=== PATIENT | female | born 1975 | race Caucasian/White ===

== ENCOUNTER 2016-09-29 20:13 | Inpatient (IN) | payer OTHER ==
[~2016-09-29] VITALS: Ht 170.2 cm; Wt 100.4 kg
--- NOTE | ~2016-09-29 | PR ---
[place], [place] PROGRESS NOTE NAME: MARY LIEBERMAN [facility] #: [id number] UNIT #: [id number] ROOM: 403 DOCTOR: SCARLET NUÑEZ MD BIRTHDATE: [birth year] DOS: SUBJECTIVE: The patient is doing fine without any complaint. Denies any chest pains, palpitations, or shortness of breath. OBJECTIVE EXAMINATION: GENERAL: She is awake and alert and oriented. Her face is pretty dontae this morning. VITAL SIGNS: Her temperature is 97.6, pulse of low 100s, respirations 16, blood pressure 104/71. LUNGS: Diminished breath sounds. A few wheezes heard this morning. HEART: Regular. ABDOMEN: Soft. EXTREMITIES: Without any edema. ASSESSMENT AND PLAN: 1. Acute exacerbation of bronchial asthma, which is moderate, intermittent. The patient is improving with the treatment plan. Continue steroids for one more day and hopefully, she can be discharged tomorrow. 2. Steroid-induced hyperglycemia. Blood sugars coming down with the taper of the steroids. 3. Type 2 diabetes mellitus, on medications. SCARLET NUÑEZ MD CM:PNTRANS 0715 SCARLET NUÑEZ MD 10/01/1645 interface
--- NOTE | ~2016-09-29 | DS ---
[place], [place] DISCHARGE SUMMARY NAME: MARY LIEBERMAN [facility] #: [id number] UNIT #: [id number] ROOM: 403 DOCTOR: SCARLET NUÑEZ MD BIRTHDATE: [birth year] DOS: HOSPITAL COURSE: The patient is 41 years old, comes into the Emergency Room with complaints of difficulty breathing. Please see the H and P dictated by Dr. Rowe for details. The patient was admitted, was started on IV steroids, breathing treatments, and antibiotics. The patient's home medications were continued. She does have bronchial asthma, intermittent, moderate and is on multiple medications for that. With IV steroids and breathing treatments, and antibiotics, the symptoms have improved. Her bronchospasm has resolved and the patient is therefore being discharged to home. She does have type 2 diabetes mellitus, [id number]-[id number]. Her blood sugars did go up with steroids. It is starting to come down with the steroid taper. The patient will follow with her PCP as an outpatient. PRESCRIPTION MEDICATIONS: Prednisone tapering dose, Ceftin 250 twice a day for 5 days, metformin 1000 b.i.d., Symbicort 160 one puff twice a day, glipizide 10 b.i.d. These are the home meds: Montelukast 10 daily, Zyrtec 10 daily, DuoNeb q.6, omeprazole 40 daily. SCARLET NUÑEZ MD CM:DISCHARG 0749 SCARLET NUÑEZ MD 10/02/16 0830 interface
--- NOTE | ~2016-09-29 | PR ---
[place], [place] PROGRESS NOTE NAME: MARY LIEBERMAN [facility] #: [id number] UNIT #: [id number] ROOM: 403 DOCTOR: SCARLET NUÑEZ MD BIRTHDATE: [birth year] DOS: SUBJECTIVE: The patient is doing fine without any complaints. OBJECTIVE: VITAL SIGNS: Graphic trend shows a pressure of 124/70, pulse of 87, respirations 17, temperature 97.3. LUNGS: Clear. HEART: Regular. ABDOMEN: Obese, soft. EXTREMITIES: Without any edema. ASSESSMENT AND PLAN: 1. Acute exacerbation of bronchial asthma. Bronchospasm has resolved. The plan is to discharge her to home today on p.o. steroids. Her labs were all normal at admission. Chest x-ray did not show any evidence of pneumonia. 2. Type 2 diabetes mellitus. Blood sugars not to bad on the steroids, blood sugar was 130 this morning. SCARLET NUÑEZ MD CM:PNTRANS 5 SCARLET NUÑEZ MD 10/02/16825 interface
--- NOTE | ~2016-09-29 | WRIGHTHP ---
[place], [place] PATIENT HISTORY AND PHYSICAL EXAM NAME: MARY LIEBERMAN [facility] #: [id number] UNIT #: [id number] ROOM: 403 DOCTOR: MELANIA GREENBERG MD BIRTHDATE: [birth year] DOS: 09/29/2016 HISTORY OF PRESENT ILLNESS: The patient is a 41-year-old female with a past medical history of: 1. Type 2 diabetes mellitus. 2. Bronchial asthma. 3. Generalized anxiety disorder. 4. Major depression, recurrent, mild. 5. History of hysterectomy. The patient presented to the Emergency Department with few-day complaints of increasing shortness of breath. The patient has history of bronchial asthma and requires recurrent treatment for shortness of breath. The patient's breathing was getting worse for 2 days. She had some wheezing and cough. Cough is nonproductive, and she was using her aerosol treatments every 4 hours without any relief. After admission, her breathing has started improving, but still not at its baseline. The patient says recently she has been getting these shortness of breath attacks quite more frequently and requires corticosteroids every time which elevates her blood sugar. Type 2 diabetes mellitus with blood sugars to be monitored and treated. The patient to be kept on no concentrated sweet diet. Corticosteroid-induced hyperglycemia with blood sugars staying between 200 to around 350, on small dose of Solu-Medrol. FAMILY HISTORY: Noncontributory. HOME MEDICATIONS: The patient takes bronchodilators and inhaled corticosteroids, omeprazole, ibuprofen, Singulair, cetirizine, metformin, glipizide. PHYSICAL EXAMINATION: GENERAL: Alert and oriented x 3, in no visible distress. Moderately obese. VITAL SIGNS: Blood pressure 137/88, heart rate 117 beats per minute, breathing 20 times per minute, temperature 98.2 degrees Fahrenheit. HEENT AND NECK: Extraocular movements are intact. Sclerae are anicteric. Oral mucosa is moist and clean. No obvious facial weakness. Neck is supple without any lymphadenopathy. No thyromegaly. No JVD. No carotid arterial bruits. LUNGS: Clear to auscultation. No wheezing. No rhonchi. CARDIOVASCULAR SYSTEM: Heart rate is regular in rate and rhythm. S1 and S2 normally audible. No significant murmur or any other abnormal cardiac sounds. ABDOMEN: Soft, nontender. No obvious organomegaly. Bowel sounds are present. No obvious herniation. EXTREMITIES: Without significant cyanosis or edema. Warm to touch. CENTRAL NERVOUS SYSTEM: Alert and oriented x 3. Cranial nerves II-XII are intact. Speech is normal. The patient is able to move all extremities. Normal muscle strength. Deep tendon reflexes are equal on both sides. Plantars were downgoing. [place], [place] PATIENT HISTORY AND PHYSICAL EXAM NAME: [facility] [id number] UNIT #: [id number] ROOM: [facility] DOCTOR: MELANIA GREENBERG MD BIRTHDATE: [birth year] LAB DATA: Normal serum electrolytes. Blood sugar 115. Chest x-ray without any acute abnormality. PT, PTT baseline. CBC is normal. IMPRESSION: 1. The patient with acute exacerbation of bronchial asthma with acute respiratory failure for which she was admitted and being treated with bronchodilators, corticosteroids, oxygen, antibiotic and her breathing is improving. The patient has been placed on a road machine runner. 2. Type 2 diabetes mellitus with reasonably controlled blood sugars. The patient takes metformin and glipizide. 3. Glucocorticoid-induced hyperglycemia, being managed with sliding scale of regular insulin given every 4 hours as needed. MELANIA GREENBERG MD CM:HISPHYS:PATIENT HISTORY AND PHYSICAL EXAMINATION 1605 6 MELANIA GREENBERG MD 10/01/16 0447 interface
[~2016-09-29 20:13] MED LIST: ALBUTEROL0.09 MG/A2 IH; CELEXA40 MG PO; CLARITIN10 MG PO; CLINDAMYCIN300 MG PO; DELTASONE10 MG PO; DIFLUCAN150 MG PO; DUONEB 3 MG/3 ML3 M1 INH; FLEXERIL5 MG PO; FLOVENT 220 M220 MCG INH; FLOVENT0.044 MG/A IH; GLIPIZIDE10 M2 PO; GLUCOPHAGE1000 MG PO; INVOKANA PO; LEVOFLOXACIN500 MG PO; LOMOCOT 0.025 M1 TAB PO; LUVOX100 MG PO; MEDROL DOSEPAK4 MG PO; MONTELUKAST SOD10 MG PO; MOTRIN800 MG PO; NORCO 10-325 T1 EACH PO; NORCO 325 MG-51 TAB PO; PEN-VK500 MG PO; PERIDEX 480 ML480 ML PO; PHENERGAN W/DM120 ML PO; PREDNICOT10 MG PO; PREDNICOT20 MG PO; PREDNISONE10 MG PO; PRILOSEC10 M1 PO; PROAIR HFA0.09 MG/AC IH; ROBITUSSIN AC 110 ML PO; SYMBICORT1 AE1 INH; TRAD5TAB1 PO; ULTRAM50 MG PO; VALTREX500 MG PO; VENTOLIN0.09 MG/AC IH; VIBRAMYCIN100 MG PO; VICODIN ES 7501 TAB PO; VOLTAREN50 M1 PO; ZANTAC150 MG PO; ZITHROMAX Z PA250 MG PO; ZITHROMAX500 MG PO; ZOFRAN ODT4 MG SL; ZOFRAN4 MG PO; ZYRTEC10 M3 PO; ZYRTEC10 MG PO; Zofran4 MG PO
[2016-09-29 20:31] VITALS: BP 145/98
[2016-09-29 21:03] LABS: BASO # 0.1 10*3/uL (0.0-0.1); BASO % 0.6 % (0.0-1.0); EOS # 1.5 10*3/uL (0.0-0.4); EOS % 15.2 % (1.0-4.0); HEMATOCRIT 41.8 % (37.0-47.0); HEMOGLOBIN 14.1 g/dl (12.0-16.0); IG # 0.1 10*3/uL (0.0-0.1); LYMPH # 2.8 10*3/uL (1.3-4.4); LYMPH % 28.7 % (27.0-41.0); MEAN CELL VOLUME 87.8 fl (81.0-99.0); MEAN CORPUSCULAR HGB 29.6 pg (27.0-31.0); MEAN CORPUSCULAR HGB CONC 33.7 g/dl (33.0-37.0); MEAN PLATELET VOLUME 9.5 fl (9.6-12.3); MONO # 0.8 10*3/uL (0.1-1.0); MONO % 8.1 % (3.0-9.0); NEUT # 4.5 10*3/uL (2.3-7.9); NEUT % 46.6 % (47.0-73.0); PLATELET COUNT AUTOMATED 384 10*3/uL (130-400); RED BLOOD COUNT 4.76 10*6/uL (4.10-5.10); RED CELL DISTRI WIDTH 12.4 % (0-14.5); WHITE BLOOD COUNT 9.7 10*3/uL (4.8-10.8)
[2016-09-29 21:15] LABS: INTERNATIONAL NORM RATIO 0.9 (2.0-3.5)
[2016-09-29 21:21] LABS: ALBUMIN 3.4 gm/dl (3.1-4.5); ALKALINE PHOSPHATASE 46 U/L (45-117); BILIRUBIN, TOTAL 0.3 mg/dl (0.2-1.0); BUN 11 mg/dl (7-24); CARBON DIOXIDE 26 mmol/L (21-32); CHLORIDE 109 mmol/L (98-107); EST GLOM FILT AFRICAN AMERICAN > 60 ml/min; GLUCOSE 115 mg/dL (65-99); MAGNESIUM 1.9 mg/dL (1.5-2.1); POTASSIUM 3.9 mmol/L (3.5-5.1); SGOT/AST 25 IU/L (3-35); SGPT/ALT 50 U/L (12-78); SODIUM 144 mmol/L (136-145); TOTAL PROTEIN 7.4 gm/dL (6.4-8.2)
[2016-09-29 21:29] LABS: TROPONIN I < 0.015 ng/ml (<0.045)
[2016-09-29 23:45] VITALS: BP 144/84
[2016-09-30] VITALS: BP 147/65
[2016-09-30 00:15] VITALS: BP 147/65
[2016-09-30] MEDS ORDERED: PRILOSEC20 M1 PO (00:39)
[2016-09-30 08:00] VITALS: BP 108/72
[2016-09-30 12:00] VITALS: BP 137/88
[2016-09-30 16:00] VITALS: BP 149/72
[2016-09-30 20:00] VITALS: BP 124/73
[2016-10-01] VITALS: BP 104/71
[2016-10-01 08:00] VITALS: BP 122/76
[2016-10-01 12:00] VITALS: BP 123/76
[2016-10-01 16:00] VITALS: BP 119/82
[2016-10-01 20:00] VITALS: BP 134/80
[2016-10-02] VITALS: BP 124/70
[2016-10-02] MEDS ORDERED: CEFUROXIME AXE250 MG PO (07:47)
[2016-10-02] MEDS ORDERED: PREDNISONE5 MG PO (07:47)
[2016-10-02 08:00] VITALS: BP 118/88
== END 2016-10-02 08:29 | disposition home or self-care (01) | DRG 202 ==
LOC: ED 20:13 → 4E 23:24
PROVIDERS: Emergency Medicine Emergency Medical Services
DX: J45.21 Mild intermittent asthma with (acute) exacerbation (principal); J96.00 Acute respiratory failure, unspecified whether with hypoxia or hypercapnia; E11.65 Type 2 diabetes mellitus with hyperglycemia; T38.0X5A Adverse effect of glucocorticoids and synthetic analogues, initial encounter; Y92.89 Other specified places as the place of occurrence of the external cause

== ENCOUNTER → 2017-02-07 | Outpatient (CLI) | payer OTHER ==
[~2017-02-07] MED LIST changes: +CEFUROXIME AXE250 MG PO; +PREDNISONE5 MG PO; +PRILOSEC20 M1 PO
== END | disposition home or self-care (01) ==
LOC: RAD 14:21
DX: J40 Bronchitis, not specified as acute or chronic (principal)

== ENCOUNTER → 2017-08-30 | Outpatient (CLI) | payer OTHER | END | disposition home or self-care (01) | LOC: US 10:47 | DX: M79.662 Pain in left lower leg (principal); R60.0 Localized edema ==

== ENCOUNTER 2017-10-09 15:01 | Emergency (ER) | payer OTHER ==
[~2017-10-09] VITALS: Ht 167.6 cm; Wt 82.1 kg
[2017-10-09 15:05] VITALS: BP 143/90
[2017-10-09] MEDS ORDERED: EFFEXOR XR150 MG PO (15:07)
[2017-10-09] MEDS ORDERED: ABILIFY15 MG PO (15:07)
[2017-10-09] MEDS ORDERED: CYCLOBENZAPRINE5 M3 PO (17:05)
== END 2017-10-09 17:08 | disposition home or self-care (01) ==
LOC: ED 15:01
DX: S16.1XXA Strain of muscle, fascia and tendon at neck level, initial encounter (principal); M25.571 Pain in right ankle and joints of right foot; Z90.49 Acquired absence of other specified parts of digestive tract; Z98.890 Other specified postprocedural states; Z90.710 Acquired absence of both cervix and uterus; Z79.899 Other long term (current) drug therapy; Z91.040 Latex allergy status; Z91.013 Allergy to seafood; X50.1XXA Overexertion from prolonged static or awkward postures, initial encounter; Y93.89 Activity, other specified; Y92.69 Other specified industrial and construction area as the place of occurrence of the external cause; Y99.9 Unspecified external cause status

== ENCOUNTER 2018-01-10 13:51 | Inpatient (IN) | payer OTHER ==
[~2018-01-10] VITALS: Ht 167.6 cm; Wt 87.1 kg
--- NOTE | ~2018-01-10 | DS ---
[place], [place] DISCHARGE SUMMARY NAME: MARY LIEBERMAN UNIT #: [id number] ROOM: [facility] DOCTOR: MELANIA GREENBERG MD BIRTHDATE: [birth year] DOS: 01/11/2018 NO DICTATION MELANIA GREENBERG MD CM:DISCHARG 22 27 MELANIA GREENBERG MD 01/11/18 182 interface
--- NOTE | ~2018-01-10 | EKG ---
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
--- NOTE | ~2018-01-10 | WRIGHTHP ---
[place], [place] PATIENT HISTORY AND PHYSICAL EXAM NAME: MARY LIEBERMAN [facility] #: [id number] UNIT #: [id number] ROOM: 515 DOCTOR: MELANIA GREENBERG MD BIRTHDATE: [birth year] DOS: 01/10/2018 HISTORY OF PRESENT ILLNESS: The patient is a 42-year-old female with a past medical history of bronchial asthma, generalized anxiety disorder, major depression, recurrent, type 2 diabetes mellitus, history of hysterectomy, suicidal attempt in the past. The patient presented to the Emergency Department at [facility] with recurrent episodes of chest pain and pressure, radiating into the back, neck and the jaw, off and on, lasting about 15 minutes at a time for last few days. The patient says she is chronically short of breath. No dizziness or fainting episode. No other GI or urinary symptoms. REVIEW OF SYSTEMS: RESPIRATORY: Chronic shortness of breath. GASTROINTESTINAL: No nausea, vomiting, diarrhea, constipation. CARDIOVASCULAR: Recurrent chest pains. FAMILY HISTORY: Noncontributory. SOCIAL HISTORY: The patient denies smoking cigarettes, alcohol and drug abuse. HOME MEDICATIONS: Fluoxetine, cetirizine, omeprazole, metformin, Symbicort, DuoNebs. ALLERGIES: Known allergies to SHELLFISH, LATEX. PHYSICAL EXAMINATION: GENERAL: Alert and oriented x 3, in no visible distress. HEENT AND NECK: Extraocular movements are intact. Sclerae are anicteric. Oral mucosa is moist and clean. No obvious facial weakness. Neck is supple without any lymphadenopathy. No thyromegaly. No JVD. No carotid arterial bruits. LUNGS: Clear to auscultation. No wheezing. No rhonchi. CARDIOVASCULAR SYSTEM: Heart rate is regular in rate and rhythm. S1 and S2 normally audible. No significant murmur or any other abnormal cardiac sounds. ABDOMEN: Soft, nontender. No obvious organomegaly. Bowel sounds are present. No obvious herniation. EXTREMITIES: Without significant cyanosis or edema. Warm to touch. CENTRAL NERVOUS SYSTEM: Alert and oriented x 3. Cranial nerves II-XII are intact. Speech is normal. The patient is able to move all extremities. Normal muscle strength. Deep tendon reflexes are equal on both sides. Plantars were downgoing. LABORATORY DATA: First set of cardiac enzymes, troponin level is negative. Chest x-ray without acute abnormality. IMPRESSION: 1. Chest pains from uncertain etiology. Cardiac enzymes to be performed and the patient is scheduled for a cardiac stress test in the morning to rule out [place], [place] PATIENT HISTORY AND PHYSICAL EXAM NAME: MARY LIEBERMAN [facility] #: [id number] UNIT #: [id number] ROOM: [facility] DOCTOR: MELANIA GREENBERG MD BIRTHDATE: [birth year] any major coronary artery disease. 2. Bronchial asthma and asthmatoid wheezing, treated with bronchodilators, inhaled corticosteroids. 3. Type 2 diabetes mellitus. The patient continued on metformin and given no concentrated sweet diet. 4. Major depression, recurrent, mild to moderate, treated with fluoxetine, which has been continued. 5. Pollen allergies treated and controlled with Zyrtec. 6. Gastroesophageal reflux disease and esophagitis, asymptomatic with omeprazole. MELANIA GREENBERG MD CM:HISPHYS:PATIENT HISTORY AND PHYSICAL EXAMINATION 34 02 MELANIA GREENBERG MD 01/10/182100 interface
--- NOTE | ~2018-01-10 | ST ---
[place], [place] EXERCISE STRESS TEST REPORT [id number] #: [id number] ROOM: 515 DOCTOR: MELANIA GREENBERG MD BIRTHDATE: [birth year] DOS: 01/11/2018 TREADMILL TEST WITH CARDIOLITE HISTORY: The patient is a 42-year-old female, presently admitted to [facility] for complaints of chest pains. The patient's cardiac enzymes have been negative, but she has a family history of early coronary artery disease in her parents. The patient's baseline EKG showed normal sinus rhythm at the heart rate of 69 beats per minute, normal cardiac axis, no significant ST-T abnormality. During the exercise, the patient developed substernal chest pains and in the left chest, which she ultimately scaled at 5/10. The patient's chest pain complaints faded away during the recovery phase. The patient did not develop any significant EKG abnormality compatible with myocardial ischemia on the EKGs and no cardiac dysrhythmias were observed. The patient was injected with Cardiolite during the peak phase of exercise. IMPRESSION: 1. Normal EKG part of the treadmill Cardiolite stress test at 90% PMHR reaching a maximum heart rate of 161 beats per minute. Peak blood pressure was 194 systolic over 80 diastolic. 2. Cardiolite results to be reported by Dr. Hanson, the school community relations coordinator later today. MELANIA GREENBERG MD CM:STRESS:EXERCISE STRESS TEST REPORT [id number] 1831 MELANIA GREENBERG MD
--- NOTE | ~2018-01-10 | DS ---
[place], [place] DISCHARGE SUMMARY NAME: MARY LIEBERMAN UNIT #: [id number] ROOM: 515 DOCTOR: MELANIA GREENBERG MD BIRTHDATE: [birth year] DOS: 01/11/2018 DISCHARGE DIAGNOSES: 1. Chest pains from uncertain etiology, normal cardiac stress test. 2. Bronchial asthma and asthmatoid wheezing. 3. Type 2 diabetes mellitus. 4. Major depression, recurrent, mild to moderate. 5. POLLEN ALLERGIES. 6. Gastroesophageal reflux disease and esophagitis. 7. History of hysterectomy. 8. History of suicidal attempt in the past. HOSPITAL COURSE: The patient presented to the Emergency Department at [facility] with chest pain and pressure radiating into the back, neck and the jaw, off and on, lasting up to 15 minutes at a time for the last several days. The patient says she is chronically short of breath because of her bronchial asthma. The patient was admitted, ruled out for myocardial infarction with serial cardiac enzymes and then taken for a cardiac stress test, which was normal. The patient to be discharged home in a stable condition and asymptomatic. 1. Bronchial asthma and asthmatoid wheezing with chronic shortness of breath is treated long-term with bronchodilators and inhaled corticosteroids, which were continued. 2. Type 2 diabetes mellitus with reasonably controlled blood sugars. The patient remains on metformin. 3. POLLEN ALLERGIES treated and controlled with cetirizine. 4. Major depression, recurrent, mild to moderate, treated with fluoxetine. LABORATORY DATA: Normal CBC. Normal serum electrolytes, bilirubin, and liver enzymes. Chest x-ray without acute abnormality. Cardiac enzymes were negative. DISCHARGE MANAGEMENT: Fluoxetine 60 mg a day, cetirizine 10 mg a day, omeprazole 40 mg a day, metformin 1000 mg b.i.d., and Dulera twice a day. Followup with PCP, Dr. Alex Romo within a week of discharge. [place], [place] DISCHARGE SUMMARY NAME: MARY LIEBERMAN UNIT #: [id number] ROOM: 515 DOCTOR: MELANIA GREENBERG MD BIRTHDATE: [birth year] MELANIA GREENBERG MD CM:DENISE 1848 05 MELANIA GREENBERG MD 01/11/18 2005 interface
[~2018-01-10 13:51] MED LIST changes: +ABILIFY15 MG PO; +CYCLOBENZAPRINE5 M3 PO; +EFFEXOR XR150 MG PO
[2018-01-10 14:23] LABS: BASO # 0.1 10*3/uL (0.0-0.1); BASO % 0.9 % (0.0-1.0); EOS # 0.7 10*3/uL (0.0-0.4); EOS % 9.8 % (1.0-4.0); HEMATOCRIT 42.6 % (37.0-47.0); HEMOGLOBIN 14.2 g/dl (12.0-16.0); LYMPH # 1.8 10*3/uL (1.3-4.4); LYMPH % 26.7 % (27.0-41.0); MEAN CELL VOLUME 90.3 fl (81.0-99.0); MEAN CORPUSCULAR HGB 30.1 pg (27.0-31.0); MEAN CORPUSCULAR HGB CONC 33.3 g/dl (33.0-37.0); MONO # 0.5 10*3/uL (0.1-1.0); MONO % 7.7 % (3.0-9.0); NEUT # 3.6 10*3/uL (2.3-7.9); NEUT % 54.6 % (47.0-73.0); PLATELET COUNT AUTOMATED 333 10*3/uL (130-400); RED BLOOD COUNT 4.72 10*6/uL (4.10-5.10); WHITE BLOOD COUNT 6.7 10*3/uL (4.8-10.8)
[2018-01-10 14:32] LABS: ACT PARTIAL THROMBO TIME 21.3 SECONDS (20.8-31.5)
[2018-01-10 14:43] LABS: ALBUMIN 3.2 gm/dl (3.1-4.5); ALKALINE PHOSPHATASE 46 U/L (45-117); BUN 7 mg/dl (7-24); CHLORIDE 108 mmol/L (98-107); CREATININE 0.72 mg/dL (0.55-1.02); LIPASE 264 U/L (73-393); POTASSIUM 3.5 mmol/L (3.5-5.1); SGOT/AST 9 IU/L (3-35); SGPT/ALT 20 U/L (12-78); SODIUM 140 mmol/L (136-145); TOTAL PROTEIN 7.1 gm/dL (6.4-8.2); TROPONIN I < 0.015 ng/ml (<0.045)
[2018-01-10] MEDS ORDERED: PROZAC20 MG PO (16:54)
[2018-01-10] MEDS ORDERED: REXULTI2 MG PO (16:55)
[2018-01-10 17:23] VITALS: BP 121/81
[2018-01-10 20:00] VITALS: BP 110/68
[2018-01-11] VITALS: BP 125/80
[2018-01-11 08:00] VITALS: BP 123/78
[2018-01-11 12:00] VITALS: BP 114/72
[2018-01-11 16:07] VITALS: BP 114/71
== END 2018-01-11 18:28 | disposition home or self-care (01) | DRG 313 ==
LOC: ED 13:51 → 5E 16:01 → EDHOLD 16:01 → 5E 16:37
PROVIDERS: Nurse Practitioner Family
PROC: 4A02XM4 Measurement of Cardiac Total Activity, External Approach (ICD-10-PCS; principal; 2018-01-11)
DX: R07.9 Chest pain, unspecified (principal); F33.1 Major depressive disorder, recurrent, moderate; J45.909 Unspecified asthma, uncomplicated; F41.1 Generalized anxiety disorder; E11.9 Type 2 diabetes mellitus without complications; Z90.710 Acquired absence of both cervix and uterus; F17.210 Nicotine dependence, cigarettes, uncomplicated; Z91.040 Latex allergy status; Z91.013 Allergy to seafood; K21.0 Gastro-esophageal reflux disease with esophagitis; Z79.84 Long term (current) use of oral hypoglycemic drugs

== ENCOUNTER → 2018-07-09 | Outpatient (CLI) | payer OTHER ==
[~2018-07-09] MED LIST changes: +PROZAC20 MG PO; +REXULTI2 MG PO; +TESSALON PERLE100 M1 PO
== END | disposition home or self-care (01) ==
LOC: RAD 19:58
DX: R05 Cough (principal); J11.1 Influenza due to unidentified influenza virus with other respiratory manifestations

== ENCOUNTER → 2018-12-03 | Outpatient (CLI) | payer OTHER ==
[~2018-12-03] MED LIST changes: +HYDROXYZINE PAM25 M1 PO; +VICTOZA 3-PAK6 MG/ML SC
== END | disposition home or self-care (01) ==
LOC: RAD 21:07
DX: R06.02 Shortness of breath (principal); J44.9 Chronic obstructive pulmonary disease, unspecified; R06.2 Wheezing

== ENCOUNTER 2019-02-25 15:01 | Inpatient (IN) | payer OTHER ==
[~2019-02-25] VITALS: Ht 168.9 cm; Wt 93.4 kg
--- NOTE | ~2019-02-25 | EKG ---
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
--- NOTE | ~2019-02-25 | ST ---
[place], [place] EXERCISE STRESS TEST REPORT NAME: MARY LIEBERMAN UNIT #: [id number] ROOM: 504 DOCTOR: BECKIE HALL MD BIRTHDATE: [birth year] DOS: 02/26/2019 LEXISCAN PORTION OF THE LEXISCAN CARDIOLITE Baseline cardiogram, sinus with 0.4 mg Lexiscan, no new EKG changes, no chest pain. Blood pressure and heart rate response normal. Nuclear images will be reported separately. BECKIE HALL MD CM:STRESS:EXERCISE STRESS TEST REPORT [id number] 0707 BECKIE HALL MD
--- NOTE | ~2019-02-25 | CON ---
[place], [place] REPORT OF CONSULTATION NAME: MARY LIEBERMAN UNIT #: [id number] ROOM: 504 DOCTOR: ISABEL LOPEZBECKIE BIRTHDATE: [birth year] DOS: 02/26/2019 REASON FOR CONSULTATION: Chest discomfort. HISTORY OF PRESENT ILLNESS: This is a 43-year-old female presented, she was riding in the car, became very nauseated. She state after the nausea, had sharp pain in the left chest. Cardiac enzymes are all negative. No acute EKG changes. She admits that the pain did subside after resting. The patient is having intermittent pains. The patient was referred and has been scheduled for a stress test. She stated that she is a type 2 diabetic and hyperlipidemic. She denies any smoking history. No previous cardiac issues. PAST MEDICAL HISTORY: Significant for diabetes mellitus and hypertension. PAST SURGICAL HISTORY: . HOME MEDICATIONS: Metformin, albuterol inhaler, Prilosec, and Symbicort. ALLERGIES: LATEX AND SHELLFISH. SOCIAL HISTORY: She denies any alcohol abuse and tobacco abuse. The patient also has seizure disorder. REVIEW OF SYSTEMS: CONSTITUTIONAL: No fever, no chills. HEENT: No visual disturbances. CARDIOVASCULAR: As per HPI. GASTROINTESTINAL: No nausea, no vomiting. GENITOURINARY: No dysuria. NEUROLOGICAL: Stable. PHYSICAL EXAMINATION: VITAL SIGNS: Blood pressure is 110/70. The patient is in sinus rhythm to sinus tachycardia. NECK: Supple, no JVD. LUNGS: Clear. HEART: Sounds are regular. NEUROLOGIC: Stable. LABORATORY DATA: Electrolytes are normal. Troponins have been negative. Hemoglobin and hematocrit within normal limits. D-dimer is normal. IMAGING DATA: Chest x-ray, no infiltrate. DIAGNOSTIC DATA: EKG, sinus rhythm with nonspecific ST-T changes. IMPRESSION AND PLAN: The patient with chest discomfort, diabetes, hypertension, and and hyperlipidemia. The patient has been scheduled for a stress test. Also, the patient has been scheduled for a CTA. D-dimer; however, is negative. We will proceed with a stress test. Continue the other medications and we will [place], [place] REPORT OF CONSULTATION NAME: MARY LIEBERMAN UNIT #: [id number] ROOM: 504 DOCTOR: ISABEL LOPEZ,BECKIE BIRTHDATE: [birth year] follow up. Thank you for this interesting consultation. BECKIE HALL MD CM:CONSTR:REPORT OF CONSULTATION 0708 02/26/19 0720 interface
--- NOTE | ~2019-02-25 | EKG ---
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
--- NOTE | ~2019-02-25 | EKG ---
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
--- NOTE | ~2019-02-25 | WRIGHTHP ---
[place], [place] PATIENT HISTORY AND PHYSICAL EXAM NAME: MARY LIEBERMAN [facility] #: [id number] UNIT #: [id number] ROOM: 504 DOCTOR: SCARLET NUÑEZ MD BIRTHDATE: [birth year] DOS: 02/26/2019 HISTORY OF PRESENT ILLNESS: The patient is 43 years old. 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 She also became slightly nauseous, states that she feels that she has had this pain for a few hours since she lifted a heavy mattress. She denies having any chest pains in the past. She has not had any shortness of breath. She was seen by Dr. Romo in his office, was advised to visit to the ER, she was seen in the Emergency Room, she had workup, which included a CT of the chest, which was negative. D-dimer, which was normal, after admission had 3 sets. She has not had any complaints. Dr. Coleman was consulted and she underwent a stress test this morning. PAST MEDICAL HISTORY: Significant for: 1. Type 2 diabetes mellitus. Blood sugars are slightly on the high side. 2. Bronchial asthma, mild, intermittent. 3. Major depression. 4. Gastroesophageal reflux disease. MEDICATIONS: She is on are fluoxetine, Symbicort, Zyrtec, Prozac, hydroxyzine, metformin, montelukast, omeprazole, and Victoza. SOCIAL HISTORY: Nonsmoker, does not use any alcohol. 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 PHYSICAL EXAMINATION: Furniture. VITAL SIGNS: Blood pressure is 129/82, pulse of 75, respirations 18, temperature 97.4. LUNGS: Clear. HEART: Regular. ABDOMEN: Obese, soft, nontender. A lot of rebound tenderness all over the chest wall. EXTREMITIES: Without any edema. Face is slightly flushed this morning. LABORATORY DATA: Comprehensive glucose 136, BUN, creatinine and electrolytes were all normal. WBC count is normal, hemoglobin and hematocrit normal. Chest x-ray shows no pathology. CT of the chest again shows no pathology. ASSESSMENT AND PLAN: 1. The patient who presents with left-sided chest pain, she has risk factors being a type 2 diabetic, the patient is ordered a stress. She had a similar one a year ago, which was negative. Consultation with Dr. Coleman has been obtained. An echocardiogram was ordered. If the stress is negative, the plan is to discharge her to home today. D-dimer was normal, so the risk of pulmonary embolism is very, very low. The patient does not have any risk factors for pulmonary embolism. 2. Type 2 diabetes mellitus. Blood sugars not very well controlled. Follow up with PCP for further adjustments in medications. 3. Gastroesophageal reflux disease, already on medicines, controlled. 4. This chest pain appears to be costochondritis. I will give her Toradol [address] [place], [place] PATIENT HISTORY AND PHYSICAL EXAM NAME: MARY LIEBERMAN UNIT #: [id number] ROOM: [facility] DOCTOR: SCARLET NUÑEZ MD BIRTHDATE: [birth year] mg IV injection before she is discharged. If the stress is negative, plan to discharge. SCARLET NUÑEZ MD CM:HISPHYS:PATIENT HISTORY AND PHYSICAL EXAMINATION 0 8 SCARLET NUÑEZ MD 02/26/19918 interface
[~2019-02-25 15:01] MED LIST changes: -HYDROXYZINE PAM25 M1 PO; -VICTOZA 3-PAK6 MG/ML SC
[2019-02-25 15:12] VITALS: BP 139/82
[2019-02-25 15:28] LABS: BASO # 0.1 10*3/uL (0.0-0.1); BASO % 0.8 % (0.0-1.0); EOS # 1.2 10*3/uL (0.0-0.4); EOS % 13.5 % (1.0-4.0); HEMATOCRIT 44.9 % (37.0-47.0); LYMPH # 1.9 10*3/uL (1.3-4.4); LYMPH % 21.2 % (27.0-41.0); MEAN CELL VOLUME 88.7 fl (81.0-99.0); MEAN CORPUSCULAR HGB 29.6 pg (27.0-31.0); MEAN CORPUSCULAR HGB CONC 33.4 g/dl (33.0-37.0); MEAN PLATELET VOLUME 9.1 fl (9.6-12.3); MONO # 0.7 10*3/uL (0.1-1.0); MONO % 7.6 % (3.0-9.0); NEUT % 56.6 % (47.0-73.0); PLATELET COUNT AUTOMATED 362 10*3/uL (130-400); RED BLOOD COUNT 5.06 10*6/uL (4.10-5.10); RED CELL DISTRI WIDTH 12.2 % (0-14.5); WHITE BLOOD COUNT 8.8 10*3/uL (4.8-10.8)
[2019-02-25 15:38] LABS: ACT PARTIAL THROMBO TIME 23.2 SECONDS (20.0-32.1)
[2019-02-25 15:45] LABS: ALBUMIN 3.6 gm/dl (3.1-4.5); ALKALINE PHOSPHATASE 57 U/L (45-117); BUN 7 mg/dl (7-24); CHLORIDE 104 mmol/L (98-107); CREATININE 0.75 mg/dL (0.55-1.02); POTASSIUM 3.5 mmol/L (3.5-5.1); SGOT/AST 15 IU/L (3-35); SGPT/ALT 33 U/L (12-78); SODIUM 136 mmol/L (136-145); TOTAL PROTEIN 7.3 gm/dL (6.4-8.2)
[2019-02-25 15:48] LABS: TROPONIN I < 0.015 ng/ml (<0.045)
[2019-02-25 16:45] VITALS: BP 112/76
[2019-02-25 18:00] VITALS: BP 129/90
[2019-02-25 18:45] VITALS: BP 127/84
--- NOTE | 2019-02-25 18:45 | NUR ---
A 43, admitted to 5E, under the services of SCARLET Cuevas MD with a diagnosis of CHEST PAIN R/O CO. Chief complaint is CHEST PAIN. Patient arrived via BED from ER. Monitor applied. Initial assessment completed. Vital signs taken and recorded. SCARLET CUEVAS MD notified of admission to the unit. Orders received. See assessment for past medical history, medications and allergies. Patient and/or family oriented to unit. [address] visitation policy reviewed. Clothing/patient valuable form completed. DANIELLE NOVAK
[2019-02-25] MEDS ORDERED: MONTELUKAST SOD10 MG PO (18:47)
[2019-02-25] MEDS ORDERED: HYDROXYZINE PAM25 M1 PO (18:49)
[2019-02-25] MEDS ORDERED: VICTOZA 3-PAK6 MG/ML SC (19:38)
[2019-02-25 20:00] VITALS: BP 111/64
--- NOTE | 2019-02-25 20:18 | NUR ---
CALLED DR. HALL CONSULT ANSWERING SERVICE TO NOTIFY OF CONSULT AND ANSWERING SERVICE SAID A DR. MONTOYA WAS COVERING. THIS DOCTOR DOES NOT HAVE PRIVILLEGES HERE AND WILL CALL CONSULT IN AM.
--- NOTE | 2019-02-25 23:20 | NUR ---
CALLED DR. NUÑEZ AND SHE WANTS VQ SCAN DONE TOMORROW AND DR. HALL CAN DECIDE ABOUT STRESS TEST BEING DONE.
[2019-02-26] VITALS: BP 129/82
--- NOTE | 2019-02-26 05:28 | NUR ---
[facility] CALLED THEY HAD SPOKE WITH DR. HALL ABOUT PATIENT AND HE WANTS THE STRESS TEST DONE OVER THE VQ SCAN. CALLED DR. NUÑEZ AND SHE SAID OKAY GO AHEAD AND DO THE STRESS TEST TODAY AND HOLD OFF ON VQ SCAN. SPOKE WITH [facility] IN [facility] AND NOTIFIED HER OF THIS.
--- NOTE | 2019-02-26 06:12 | NUR ---
CALLED AND ANSWERING SERVICE SENT PAGE TO DR. HALL.
--- NOTE | 2019-02-26 06:14 | NUR ---
DR. HALL NOTIFIED OF CONSULT.
--- NOTE | 2019-02-26 07:03 | NUR ---
INFORMED CONSENT SIGNED FOR LEXISCAN STRESS TEST WITH DR. HALL. RESTING EKG NSR, HR 89, BP 120/80. PULSE OX 89% AND INSPIRATORY WHEEZES ON RIGHT SIDE THROUGHOUT AND LEFT CLEAR. COMPLETED ONE MINUTE OF LEXISCAN PROTOCOL RECEIVING LEXISCAN 0.4MG OVER 10 SECONDS. NO ARRHYTHMIAS OR ST CHANGES NOTED. PT C/O HEADACHE AND NAUSEA. LAST RECOVERY HR 112, BP 126/80. WAITING NUCLEAR SCANNING IN STABLE CONDITION.
--- NOTE | 2019-02-26 07:04 | NUR ---
PT. IS IN CARDIAC REHAB HAVING STRESS TEST DONE.
--- NOTE | 2019-02-26 07:34 | NUR ---
AEROSOL TREATMENT NOT GIVEN, PT. OFF FLOOR HAVING A STRESS TEST.
--- NOTE | 2019-02-26 09:02 | NUR ---
MEDICATED WITH ONE TIME DOSE OF TORODOL FOR HEADACHE. DR. NUÑEZ HAS ROUNDED.
[2019-02-26 09:03] VITALS: BP 116/88
[2019-02-26 12:00] VITALS: BP 115/65
--- NOTE | 2019-02-26 13:43 | NUR ---
PATIENT TO BE DISCHARGED PENDING STRESS TEST.
--- NOTE | 2019-02-26 14:48 | NUR ---
DR. NUÑEZ AWARE OF STRESS RESULTS, PATIENT BEING DISCHARGED.
== END 2019-02-26 14:48 | disposition home or self-care (01) | DRG 206 ==
LOC: ED 15:01 → EDHOLD 18:02 → 5E 18:02
PROVIDERS: Emergency Medicine; ADMIT Internal Medicine
PROC: 4A02XM4 Measurement of Cardiac Total Activity, External Approach (ICD-10-PCS; principal; 2019-02-26)
PROC: 3E073KZ Introduction of Other Diagnostic Substance into Coronary Artery, Percutaneous Approach (ICD-10-PCS; principal; 2019-02-26)
DX: M94.0 Chondrocostal junction syndrome [Tietze] (principal); E11.9 Type 2 diabetes mellitus without complications; F32.9 Major depressive disorder, single episode, unspecified; K21.9 Gastro-esophageal reflux disease without esophagitis; I10 Essential (primary) hypertension; J45.20 Mild intermittent asthma, uncomplicated; E78.5 Hyperlipidemia, unspecified; Z79.84 Long term (current) use of oral hypoglycemic drugs; Z79.51 Long term (current) use of inhaled steroids; Z79.899 Other long term (current) drug therapy; Z91.040 Latex allergy status; Z91.013 Allergy to seafood; Z98.891 History of uterine scar from previous surgery; Z90.49 Acquired absence of other specified parts of digestive tract

== ENCOUNTER 2019-05-18 17:26 | Emergency (ER) | payer OTHER ==
[~2019-05-18] VITALS: Ht 167.6 cm; Wt 91.6 kg
[~2019-05-18 17:26] MED LIST changes: +HYDROXYZINE PAM25 M1 PO; +VICTOZA 3-PAK6 MG/ML SC
[2019-05-18 17:27] VITALS: BP 164/92
[2019-05-18] MEDS ORDERED: Percocet 325 MG1 TAB PO (19:35)
== END 2019-05-18 19:36 | disposition home or self-care (01) ==
LOC: ED 17:26
DX: S22.32XA Fracture of one rib, left side, initial encounter for closed fracture (principal); J44.9 Chronic obstructive pulmonary disease, unspecified; E11.9 Type 2 diabetes mellitus without complications; Z91.013 Allergy to seafood; Z91.040 Latex allergy status; Z79.899 Other long term (current) drug therapy; W11.XXXA Fall on and from ladder, initial encounter; Y93.89 Activity, other specified; Y92.69 Other specified industrial and construction area as the place of occurrence of the external cause; Y99.8 Other external cause status

== ENCOUNTER → 2019-05-24 | Outpatient (CLI) | payer OTHER ==
[~2019-05-24] MED LIST changes: +Percocet 325 MG1 TAB PO
== END | disposition home or self-care (01) ==
LOC: RAD 14:34
DX: R05 Cough (principal); R06.02 Shortness of breath

== ENCOUNTER → 2019-06-18 | Outpatient (CLI) | payer OTHER | END | disposition home or self-care (01) | LOC: RAD 16:02 | DX: S22.32XA Fracture of one rib, left side, initial encounter for closed fracture (principal); X58.XXXA Exposure to other specified factors, initial encounter; Y93.89 Activity, other specified; Y92.89 Other specified places as the place of occurrence of the external cause; Y99.8 Other external cause status ==

== ENCOUNTER 2019-08-25 03:03 | Emergency (ER) | payer OTHER ==
[~2019-08-25] VITALS: Ht 167.6 cm; Wt 92.5 kg
[2019-08-25 03:08] VITALS: BP 119/101
[2019-08-25 03:32] LABS: BASO # 0.1 10*3/uL (0.0-0.1); BASO % 0.7 % (0.0-1.0); EOS # 0.2 10*3/uL (0.0-0.4); EOS % 1.7 % (1.0-4.0); HEMATOCRIT 44.2 % (37.0-47.0); LYMPH # 1.5 10*3/uL (1.3-4.4); LYMPH % 13.5 % (27.0-41.0); MEAN CELL VOLUME 89.7 fl (81.0-99.0); MEAN CORPUSCULAR HGB 30.4 pg (27.0-31.0); MEAN CORPUSCULAR HGB CONC 33.9 g/dl (33.0-37.0); MEAN PLATELET VOLUME 9.2 fl (9.6-12.3); MONO # 0.6 10*3/uL (0.1-1.0); MONO % 5.3 % (3.0-9.0); NEUT # 8.9 10*3/uL (2.3-7.9); NEUT % 78.3 % (47.0-73.0); PLATELET COUNT AUTOMATED 393 10*3/uL (130-400); RED BLOOD COUNT 4.93 10*6/uL (4.10-5.10); RED CELL DISTRI WIDTH 12.1 % (0-14.5); WHITE BLOOD COUNT 11.4 10*3/uL (4.8-10.8)
[2019-08-25 03:42] LABS: BUN 11 mg/dl (7-24); CHLORIDE 102 mmol/L (98-107); CREATININE 0.99 mg/dL (0.55-1.02); POTASSIUM 4.5 mmol/L (3.5-5.1); SODIUM 137 mmol/L (136-145)
[2019-08-25] MEDS ORDERED: Ipratropium Brom3 ML INH (05:19)
[2019-08-25] MEDS ORDERED: PREDNISONE50 MG PO (05:19)
[2019-08-25] MEDS ORDERED: AUGMENTIN 875875 MG PO (05:19)
[2019-08-25 05:29] LABS: BILIRUBIN NEGATIVE (NEGATIVE); BLOOD NEGATIVE (NEGATIVE); CLARITY CLEAR (CLEAR); COLOR YELLOW (YELLOW); GLUCOSE 3+ (NEGATIVE); KETONE 2+ (NEGATIVE); LEUKO ESTERASE NEGATIVE (NEGATIVE); NITRITE NEGATIVE (NEGATIVE); SPECIFIC GRAVITY 1.025 (1.005-1.030); UROBILINOGEN 0.2 E.U./dl (0.2-1.0)
[2019-08-25 05:32] LABS: WBC 0-2 wbc/hpf (0-5)
== END 2019-08-25 05:36 | disposition home or self-care (01) ==
LOC: ED 03:03
PROVIDERS: Emergency Medicine Emergency Medical Services
DX: J20.9 Acute bronchitis, unspecified (principal); E11.9 Type 2 diabetes mellitus without complications; J44.9 Chronic obstructive pulmonary disease, unspecified; Z91.013 Allergy to seafood; Z91.040 Latex allergy status; Z79.899 Other long term (current) drug therapy; Z90.710 Acquired absence of both cervix and uterus; Z90.49 Acquired absence of other specified parts of digestive tract

== ENCOUNTER 2019-09-13 23:02 | Inpatient (IN) | payer OTHER ==
[~2019-09-13] VITALS: Ht 167.6 cm; Wt 91.3 kg
[~2019-09-13 23:02] MED LIST changes: +AUGMENTIN 875875 MG PO; +Ipratropium Brom3 ML INH; +PREDNISONE50 MG PO
[2019-09-14] VITALS: BP 109/77
[2019-09-14 01:23] LABS: BASO # 0.1 10*3/uL (0.0-0.1); BASO % 0.7 % (0.0-1.0); EOS # 1.2 10*3/uL (0.0-0.4); HEMATOCRIT 44.7 % (37.0-47.0); HEMOGLOBIN 15.3 g/dl (12.0-16.0); LYMPH # 2.9 10*3/uL (1.3-4.4); LYMPH % 27.8 % (27.0-41.0); MEAN CELL VOLUME 87.3 fl (81.0-99.0); MEAN CORPUSCULAR HGB 29.9 pg (27.0-31.0); MEAN CORPUSCULAR HGB CONC 34.2 g/dl (33.0-37.0); MEAN PLATELET VOLUME 9.5 fl (9.6-12.3); MONO # 0.9 10*3/uL (0.1-1.0); MONO % 8.9 % (3.0-9.0); NEUT # 5.1 10*3/uL (2.3-7.9); NEUT % 49.8 % (47.0-73.0); PLATELET COUNT AUTOMATED 343 10*3/uL (130-400); RED BLOOD COUNT 5.12 10*6/uL (4.10-5.10); RED CELL DISTRI WIDTH 11.9 % (0-14.5); WHITE BLOOD COUNT 10.3 10*3/uL (4.8-10.8)
[2019-09-14 01:34] LABS: BUN 9 mg/dl (7-24); CHLORIDE 105 mmol/L (98-107); CREATININE 0.85 mg/dL (0.55-1.02); POTASSIUM 3.9 mmol/L (3.5-5.1); SODIUM 135 mmol/L (136-145)
[2019-09-14 02:35] VITALS: BP 119/74
[2019-09-14] MEDS ORDERED: LATU80TA PO (02:58)
[2019-09-14] MEDS ORDERED: JANUVIA100 MG PO (02:58)
[2019-09-14 12:00] VITALS: BP 115/72
[2019-09-14 16:00] VITALS: BP 117/78
[2019-09-14 19:37] LABS: CREATININE 1.23 mg/dL (0.55-1.02); POTASSIUM 4.7 mmol/L (3.5-5.1)
[2019-09-14 21:45] VITALS: BP 119/76
[2019-09-15] VITALS: BP 109/77
[2019-09-15 04:00] VITALS: BP 119/68
[2019-09-15 05:10] LABS: BUN 20 mg/dl (7-24); CHLORIDE 103 mmol/L (98-107); POTASSIUM 3.9 mmol/L (3.5-5.1); SODIUM 134 mmol/L (136-145)
[2019-09-15 08:00] VITALS: BP 99/55
[2019-09-15 12:00] VITALS: BP 105/64
[2019-09-15 16:00] VITALS: BP 102/62
[2019-09-15 20:00] VITALS: BP 97/60
[2019-09-16] VITALS: BP 106/69
[2019-09-16 08:00] VITALS: BP 106/60
[2019-09-16] MEDS ORDERED: Lantus SC (08:41)
[2019-09-16] MEDS ORDERED: PREDNISONE5 MG PO (08:41)
[2019-09-16] MEDS ORDERED: CEFUROXIME AXE250 MG PO (08:41)
[2019-09-16 16:08] LABS: MYCOPLASMA PNEUMONIAE IGG <100 U/mL (0-99); MYCOPLASMA PNEUMONIAE IGM <770 U/mL (0-769)
== END 2019-09-16 09:45 | disposition home or self-care (01) | DRG 190 ==
LOC: ED 23:02 → 4E 09-14 02:46 → ICCU 09-14 02:46 → 4E 09-14 08:42 → ICCU 09-14 21:06
PROVIDERS: Emergency Medicine Emergency Medical Services; ADMIT Internal Medicine
DX: J44.0 Chronic obstructive pulmonary disease with (acute) lower respiratory infection (principal); J18.9 Pneumonia, unspecified organism; J45.21 Mild intermittent asthma with (acute) exacerbation; E87.2 Acidosis; S22.42XA Multiple fractures of ribs, left side, initial encounter for closed fracture; J44.1 Chronic obstructive pulmonary disease with (acute) exacerbation; R00.0 Tachycardia, unspecified; F41.1 Generalized anxiety disorder; E66.9 Obesity, unspecified; E11.65 Type 2 diabetes mellitus with hyperglycemia; F32.9 Major depressive disorder, single episode, unspecified; K21.9 Gastro-esophageal reflux disease without esophagitis; X58.XXXA Exposure to other specified factors, initial encounter; Y93.89 Activity, other specified; Y92.89 Other specified places as the place of occurrence of the external cause; Y99.8 Other external cause status; Z91.040 Latex allergy status; Z91.013 Allergy to seafood; Z87.01 Personal history of pneumonia (recurrent); Z91.81 History of falling; Z90.49 Acquired absence of other specified parts of digestive tract; Z90.710 Acquired absence of both cervix and uterus; Z98.891 History of uterine scar from previous surgery; Z83.3 Family history of diabetes mellitus; Z82.49 Family history of ischemic heart disease and other diseases of the circulatory system; Z82.0 Family history of epilepsy and other diseases of the nervous system; Z91.5 Personal history of self-harm; Z68.32 Body mass index [BMI] 32.0-32.9, adult

== ENCOUNTER → 2020-01-21 | Outpatient (CLI) | payer OTHER ==
[~2020-01-21] MED LIST changes: +JANUVIA100 MG PO; +LATU80TA PO; +Lantus SC
[2020-01-21 12:46] LABS: HEMATOCRIT 44.2 % (37.0-47.0); MEAN CELL VOLUME 86.2 fl (81.0-99.0); MEAN CORPUSCULAR HGB 28.5 pg (27.0-31.0); MEAN PLATELET VOLUME 9.4 fl (9.6-12.3); RED BLOOD COUNT 5.13 10*6/uL (4.10-5.10); WHITE BLOOD COUNT 6.3 10*3/uL (4.8-10.8)
[2020-01-21 13:12] LABS: ALBUMIN 3.1 gm/dl (3.1-4.5); ALKALINE PHOSPHATASE 54 U/L (45-117); BUN 12 mg/dl (7-24); CHLORIDE 107 mmol/L (98-107); CHOLESTEROL 235 mg/dL (<200); CREATININE 0.97 mg/dL (0.55-1.02); HDL CHOLESTEROL 64 mg/dl (40-60); LDL CHOLESTEROL 141 mg/dL (9-159); POTASSIUM 3.7 mmol/L (3.5-5.1); SGOT/AST 7 IU/L (3-35); SGPT/ALT 22 U/L (12-78); SODIUM 137 mmol/L (136-145); TOTAL PROTEIN 6.9 gm/dL (6.4-8.2); TRIGLYCERIDES 148 mg/dl (<150); VLDL CHOLESTEROL 30 mg/dL (6-40)
== END | disposition home or self-care (01) ==
LOC: LAB 12:05
PROVIDERS: Family Medicine
DX: J44.9 Chronic obstructive pulmonary disease, unspecified (principal); K21.9 Gastro-esophageal reflux disease without esophagitis; E11.9 Type 2 diabetes mellitus without complications; J45.909 Unspecified asthma, uncomplicated

== ENCOUNTER 2020-02-16 20:58 | Emergency (ER) | payer OTHER ==
[~2020-02-16] VITALS: Ht 167.6 cm
[2020-02-16 21:32] VITALS: BP 133/83
[2020-02-16] MEDS ORDERED: CLEOCIN HCL150 MG PO (22:39)
[2020-02-16] MEDS ORDERED: NAPROSYN500 MG PO (22:39)
== END 2020-02-16 22:58 | disposition home or self-care (01) ==
LOC: ED 20:58
DX: K04.7 Periapical abscess without sinus (principal); K02.9 Dental caries, unspecified; Z91.013 Allergy to seafood; Z91.040 Latex allergy status; Z79.899 Other long term (current) drug therapy

== ENCOUNTER → 2020-04-21 | Outpatient (CLI) | payer OTHER ==
[~2020-04-21] MED LIST changes: +CLEOCIN HCL150 MG PO; +NAPROSYN500 MG PO
== END | disposition home or self-care (01) ==
LOC: RAD 18:38
PROVIDERS: ATTEND Nurse Practitioner Family
DX: R07.81 Pleurodynia (principal)

== ENCOUNTER 2020-10-24 03:09 | Observation (INO) | payer BC ==
[2020-10-24] VITALS (7 sets, daily range): BP systolic 112–136; BP diastolic 71–85
[~2020-10-24] VITALS: Ht 167.6 cm; Wt 96.6 kg
[~2020-10-24 03:09] MED LIST changes: +SYMB160 INH; -SYMBICORT1 AE1 INH
[2020-10-24 04:17] LABS: BASO % 0.3 % (0.0-1.0); HEMATOCRIT 42.3 % (37.0-47.0); LYMPH # 2.1 10*3/uL (1.3-4.4); MEAN CELL VOLUME 87.2 fl (81.0-99.0); MEAN CORPUSCULAR HGB 29.1 pg (27.0-31.0); MEAN CORPUSCULAR HGB CONC 33.3 g/dl (33.0-37.0); MEAN PLATELET VOLUME 9.3 fl (9.6-12.3); MONO # 0.9 10*3/uL (0.1-1.0); MONO % 11.2 % (3.0-9.0); NEUT # 4.6 10*3/uL (2.3-7.9); NEUT % 60.8 % (47.0-73.0); PLATELET COUNT AUTOMATED 409 10*3/uL (130-400); RED BLOOD COUNT 4.85 10*6/uL (4.10-5.10); WHITE BLOOD COUNT 7.6 10*3/uL (4.8-10.8)
[2020-10-24 04:29] LABS: ALBUMIN 3.3 gm/dl (3.1-4.5); ALKALINE PHOSPHATASE 74 U/L (45-117); BUN 11 mg/dl (7-24); CHLORIDE 105 mmol/L (98-107); CREATININE 0.89 mg/dL (0.55-1.02); POTASSIUM 3.9 mmol/L (3.5-5.1); SGOT/AST 16 IU/L (3-35); SGPT/ALT 28 U/L (12-78); SODIUM 138 mmol/L (136-145); TOTAL PROTEIN 7.4 gm/dL (6.4-8.2)
[2020-10-24] MEDS ORDERED: NAPROSYN500 MG PO (06:54)
[2020-10-24] MEDS ORDERED: LANTUS SOL100 UNIT/1 SC (06:56)
[2020-10-24] MEDS ORDERED: PROTONIX40 MG PO (06:57)
[2020-10-24] MEDS ORDERED: NEURONTIN300 MG PO (06:58)
[2020-10-24] MEDS ORDERED: PEPCID20 MG PO (07:01)
[2020-10-24] MEDS ORDERED: GLUCOPHAGE1000 MG PO (07:01)
[2020-10-24] MEDS ORDERED: FASENRA PE30 MG/1 ML SQ (07:02)
[2020-10-24] MEDS ORDERED: PROAIR HFA8.5 GM INH (07:03)
[2020-10-24] MEDS ORDERED: AUGMENTIN 875875 MG PO (07:03)
[2020-10-24] MEDS ORDERED: METFORMIN HCL500 M2 PO (07:53)
[2020-10-24] MEDS ORDERED: METFORMIN XR500 MG PO (08:05)
[2020-10-25] VITALS: BP 124/83
[2020-10-25 07:58] VITALS: BP 122/80
[2020-10-25 10:58] VITALS: BP 133/82
[2020-10-25] MEDS ORDERED: Ondansetron8 MG PO (15:10)
[2020-10-25 15:40] VITALS: BP 134/68
== END 2020-10-25 16:06 | disposition home or self-care (01) ==
LOC: ED 03:09 → EDHOLD 05:24 → 5E 05:24
PROVIDERS: Emergency Medicine; ADMIT Internal Medicine; ATTEND Internal Medicine
DX: K02.9 Dental caries, unspecified (principal); R22.0 Localized swelling, mass and lump, head; E11.9 Type 2 diabetes mellitus without complications; I10 Essential (primary) hypertension; F41.1 Generalized anxiety disorder; K21.00 Gastro-esophageal reflux disease with esophagitis, without bleeding; E66.01 Morbid (severe) obesity due to excess calories; J30.1 Allergic rhinitis due to pollen; J44.1 Chronic obstructive pulmonary disease with (acute) exacerbation; Z68.34 Body mass index [BMI] 34.0-34.9, adult; Z79.4 Long term (current) use of insulin; Z79.899 Other long term (current) drug therapy

== ENCOUNTER → 2021-01-26 | Outpatient (CLI) | payer BC ==
[~2021-01-26] MED LIST changes: +FASENRA PE30 MG/1 ML SQ; +LANTUS SOL100 UNIT/1 SC; +METFORMIN HCL500 M2 PO; +METFORMIN XR500 MG PO; +NEURONTIN300 MG PO; +Ondansetron8 MG PO; +PEPCID20 MG PO; +PROAIR HFA8.5 GM INH; +PROTONIX40 MG PO
== END | disposition home or self-care (01) ==
LOC: LAB 15:14
PROVIDERS: ATTEND Family Medicine
DX: R05 Cough (principal); R06.02 Shortness of breath

== ENCOUNTER 2021-03-09 12:41 | Emergency (ER) | payer BC ==
[~2021-03-09] VITALS: Wt 95.3 kg
[2021-03-09 12:50] VITALS: BP 134/66
== END 2021-03-09 13:00 | disposition left against medical advice (07) ==
LOC: ED 12:41
DX: R06.00 Dyspnea, unspecified (principal); Z53.21 Procedure and treatment not carried out due to patient leaving prior to being seen by health care provider

== ENCOUNTER → 2021-03-26 | Outpatient (CLI) | payer BC | END | disposition home or self-care (01) | LOC: COVID19 16:42 | PROVIDERS: ATTEND Internal Medicine | DX: Z11.52 Encounter for screening for COVID-19 (principal) ==

== ENCOUNTER → 2021-05-28 | Outpatient (CLI) | payer BC | END | disposition home or self-care (01) | LOC: RAD 12:46 | PROVIDERS: ATTEND Family Medicine | DX: R06.02 Shortness of breath (principal); R05.9 Cough, unspecified ==